=== PATIENT | female | born 1995 | race Two or more races ===

== ENCOUNTER 2024-05-29 19:45 | Emergency (ER) | payer OTHER ==
[~2024-05-29] VITALS: Ht 170.2 cm; Wt 77.1 kg
[2024-05-29] MEDS ORDERED: ACETAMINOPHEN 500 MG GEL..CAP PO ONE ×2 (21:15→21:22)
[2024-05-29] MEDS ORDERED: CEFTRIAXONE SODIUM 1,000 MG VIAL IM ONE (21:15)
[2024-05-29] MEDS ORDERED: CEFTRIAXONE SODIUM 1,000 MG VIAL ONE (21:23)
[2024-05-29] MEDS ORDERED: LIDOCAINE HCL 1% 10ML VIAL ONE (21:23)
== END 2024-05-29 21:35 | disposition home or self-care (01) ==
LOC: ER 19:46
DX: H66.93 Otitis media, unspecified, bilateral (principal)